=== PATIENT | female | born 1960 | race Caucasian/White ===

== ENCOUNTER 2021-10-08 10:16 | Inpatient (IN) | payer BC, MEDICAID ==
[~2021-10-08] VITALS: Ht 165.1 cm; Wt 51.7 kg
--- NOTE | 2021-10-08 10:50 | NUR ---
SALINE LOCK ESTABLISHED AND BLOOD DRAWN
--- NOTE | 2021-10-08 10:51 | NUR ---
UNABLE TO PROVIDE URINE AT THIS TIME, WILL TRY AGAIN LATER
--- NOTE | 2021-10-08 11:00 | NUR ---
PT BIB [facility] @ 1030 [facility],SENT BY DR LUNA FOR POOR INTAKE,POSSIBLE G-TUBE PLACEMENT. PT A/OX1-2 WITH FORGETFULNESS. TOLERATING R/A WELL WITH NO SOB AT 100%. L HAND #20G S/L; PATENT AND INTACT. SAFETY MEASURES IN PLACE
[2021-10-08] MEDS ORDERED: POLY17PO4 PO (11:02)
[2021-10-08] MEDS ORDERED: ASCO500C17 PO (11:02)
[2021-10-08] MEDS ORDERED: SENN-18 PO (11:02)
[2021-10-08] MEDS ORDERED: QUET25TA PO (11:02)
[2021-10-08] MEDS ORDERED: MIRT-121 PO (11:02)
[2021-10-08] MEDS ORDERED: SUCR1ORA4 PO (11:02)
[2021-10-08] MEDS ORDERED: THIA100T74 PO (11:02)
[2021-10-08] MEDS ORDERED: LANS15CA13 PO (11:02)
[2021-10-08] MEDS ORDERED: HEPA100D33 SUBCUT (11:02)
[2021-10-08] MEDS ORDERED: MULT-134 PO (11:02)
[2021-10-08] MEDS ORDERED: AMIN887L PO (11:02)
--- NOTE | 2021-10-08 11:16 | NUR ---
COVID ANTIGEN SWAB COLLECTED AND SENT TO LAB
[2021-10-08 11:21] LABS: BASOPHILS % (AUTO) 0.4 % (0.0-2.0); EOSINOPHILS % (AUTO) 3.4 % (0.0-6.0); HEMATOCRIT 39 % (33-45); HEMOGLOBIN 12.4 g/dL (11.5-14.8); LYMPHOCYTES % (AUTO) 45.3 % (20.0-44.0); MEAN CORPUSCULAR HGB CONC 32 g/dl (31.0-36.0); MEAN CORPUSCULAR VOLUME 89 fL (82-100); MONOCYTES # (AUTO) 0.4 K/uL (0.1-1.30); MONOCYTES % (AUTO) 8.9 % (2.0-12.0); NEUTROPHILS # (AUTO) 1.8 K/uL (1.8-8.9); PLATELET COUNT (AUTO) 250 K/uL (150-450); RED BLOOD CELL COUNT(AUTO) 4.36 MIL/uL (4.0-5.2); WHITE BLOOD COUNT (AUTO) 4.4 K/uL (4.3-11.0)
[2021-10-08 11:44] LABS: ALBUMIN 2.9 g/dL (3.4-5.0); BILIRUBIN,DIRECT 0.2 mg/dL (0.0-0.2); BILIRUBIN,TOTAL 0.7 mg/dL (0.2-1.0); CALCIUM, SERUM 9.8 mg/dL (8.5-10.1); CREATININE 0.6 mg/dL (0.6-1.3); POTASSIUM 3.7 mmol/L (3.5-5.1)
--- NOTE | 2021-10-08 11:50 | NUR ---
ZAYRA FROM [facility] FAX [phone]
[2021-10-08 11:52] LABS: THYROID STIMULATING HORMONE 5.593 uIU/mL (0.358-3.74)
[2021-10-08] MEDS ORDERED: IV NS 0.9% 1,000 ML BAG IV ONE (12:30)
[2021-10-08] MEDS ORDERED: ONDANSETRON HCL/PF 4 MG/2 ML VIAL IVP PRN (13:30)
[2021-10-08] MEDS ORDERED: MAGNESIUM HYDROXIDE 30 ML UDC PO PRN (13:30)
[2021-10-08] MEDS ORDERED: MAG HYDROX/AL HYDROX/SIMETH 30 ML UDC PO PRN (13:30)
--- NOTE | 2021-10-08 13:54 | NUR ---
COVID ANTIGEN (+); [place] BYRNE AWARE
--- NOTE | 2021-10-08 14:02 | NUR ---
ZAYRA FROM [facility] PT BEING DECLINED AT [facility] AND [facility] DUE TO NO BEDS. PT OKAY TO STAY AT [facility]. CALL [phone] FOR AUTH.
--- NOTE | 2021-10-08 16:12 | NUR ---
BED 202
--- NOTE | 2021-10-08 16:20 | NUR ---
REPORT GIVEN TO SHAINA FOR [facility], TRANSFER PATIENT IN 20MINS, ROOM BEING PREPARED
[2021-10-08] MEDS ORDERED: Z GUARD REMEDY 4 OZ OINT TP PRN (16:30)
--- NOTE | 2021-10-08 17:33 | NUR ---
PT TRANSFERRED TO [facility]IA [facility] PROTOCOL
--- NOTE | 2021-10-08 17:40 | NUR ---
MS RN ADMITTING NOTES RECEIVED ADMISSION FROM ER. PATIENT MEDICALLY STABLE. VS WNL. WILL CONTINUE TO MONITOR PATIENT.
[2021-10-08] MEDS: PANTOPRAZOLE 40 MG TABLET.DR PO SCH (18:15)
[2021-10-08] MEDS: QUETIAPINE FUMARATE 25 MG TABLET PO SCH (18:16)
--- NOTE | 2021-10-08 19:12 | NUR ---
MS RN NOTES PATIENT RESTING IN BED. ENDORSED TO CRISIS WORKER NURSE FOR [facility]
--- NOTE | 2021-10-08 19:30 | NUR ---
RN opening notes Pt is laying in bed comfortably watching TV. Pt is alert and orientedX1 and forgetful. Respiration is normal in room air. No SOB. No S/S of distress noted. IV sites L wrist # 20 is clean,intact, flushes well and SL. Noted dryness on Pt's skin. Safety precautions is maintained. Bed at low position, brakes locked, side rails upX3, bed alarm is on, hob elevated and call light is within reach. Will continue to monitor.
[2021-10-08 20:00] VITALS: BP 100/48
[2021-10-08] MEDS: IV NS 0.9% 1,000 ML IV PRN (20:10)
[2021-10-08] MEDS: ACETAMINOPHEN 325 MG TABLET PO PRN (20:12)
[2021-10-08] MEDS: MIRTAZAPINE 15 MG TABLET PO SCH (21:45)
[2021-10-08] MEDS: SENNOSIDES 8.6 MG TABLET PO SCH (21:45)
--- NOTE | 2021-10-09 02:27 | NUR ---
RN notes Informed and notified Dr. Nair regarding UA specimen and Pt's VTE score >5. Pt is incontinent. MD ordered straight catherer (once) and lovenox 40 mg/SQ/daily. Order carried out.
[2021-10-09] MEDS: ENOXAPARIN SODIUM 40 MG/0.4 ML DISP.SYRIN SQ SCH ×2 (03:25→22:10)
--- NOTE | 2021-10-09 03:33 | NUR ---
RN notes Unable to collect UA specimen thru straight cath. Pt refused straight cath. Explained risks and benefits. Pt stated "Try again later." Will try again.
[2021-10-09 04:00] VITALS: BP 100/58
--- NOTE | 2021-10-09 05:00 | NUR ---
RN notes Tried to inserted straight catherer for second time to collect UA. Unable to collect. Pt keep refusing. Explained risks and benefits. Will endorse to am nurse.
--- NOTE | 2021-10-09 06:30 | NUR ---
RN closing notes Pt is resting in bed comfortbaly. Pt is alert and orientedX1 and forgetful. Respiration is normal in room air. No SOB. No S/S of distress noted. IV sites L wrist # 20 is clean,intact, flushes well and infusing well NS@ 75 ml/hr. Routine meds were given as ordered. Skin care provided. Kept Pt clean, dry and comfortable. Safety precautions is maintained. Bed at low position, brakes locked, side rails upX3, bed alarm is on, hob elevated and call light is within reach. Will endorse to am nurse for M[facility].
[2021-10-09 07:24] LABS: BASOPHILS % (AUTO) 0.3 % (0.0-2.0); EOSINOPHILS % (AUTO) 2.5 % (0.0-6.0); HEMATOCRIT 35 % (33-45); HEMOGLOBIN 11.2 g/dL (11.5-14.8); LYMPHOCYTES % (AUTO) 37.9 % (20.0-44.0); MEAN CORPUSCULAR HGB CONC 32 g/dl (31.0-36.0); MEAN CORPUSCULAR VOLUME 89 fL (82-100); MONOCYTES # (AUTO) 0.5 K/uL (0.1-1.30); MONOCYTES % (AUTO) 8.9 % (2.0-12.0); NEUTROPHILS # (AUTO) 2.7 K/uL (1.8-8.9); NEUTROPHILS % (AUTO) 50.4 % (43.0-81.0); PLATELET COUNT (AUTO) 258 K/uL (150-450); WHITE BLOOD COUNT (AUTO) 5.3 K/uL (4.3-11.0)
[2021-10-09 08:00] VITALS: BP 104/56
[2021-10-09 08:37] LABS: CALCIUM, SERUM 9.2 mg/dL (8.5-10.1); CREATININE 0.5 mg/dL (0.6-1.3); MAGNESIUM 1.9 mg/dL (1.8-2.4); PHOSPHORUS 3.7 mg/dL (2.5-4.9); POTASSIUM 3.5 mmol/L (3.5-5.1)
[2021-10-09] MEDS: PROSTAT (PYXIS) 30 ML UDC PO SCH (09:00)
[2021-10-09] MEDS: MULTIVIT W/MINERALS 1 TAB TABLET PO SCH (09:07)
[2021-10-09] MEDS: SUCRALFATE 1 G TABLET PO SCH (09:07)
[2021-10-09] MEDS: POLYETHYLENE GLYCOL 3350 17 GM POWD.PACK PO SCH (09:07)
[2021-10-09] MEDS: ASCORBIC ACID 500 MG TABLET PO SCH (09:07)
[2021-10-09] MEDS: QUETIAPINE FUMARATE 25 MG TABLET PO SCH ×2 (09:07→16:56)
[2021-10-09] MEDS: PANTOPRAZOLE 40 MG TABLET.DR PO SCH ×2 (09:07→16:56)
[2021-10-09] MEDS: THIAMINE HCL 100 MG TABLET PO SCH (09:14)
[2021-10-09] MEDS: IV NS 0.9% 1,000 ML IV PRN (11:42)
--- NOTE | 2021-10-09 18:47 | NUR ---
RN MS NOTES PT IN BED, AWAKE, ALERT AND VERBALLY RESPONSIVE, WATCHING TV, DENIES PAIN NOT IN DISTRESS, CALL LIGHT WITHIN REACH, IV FLUIDS INFUSING WELL, PM CARE PROVIDED, ALL NEEDS ATTENDED.
--- NOTE | 2021-10-09 19:25 | NUR ---
RN MS NOTES PT IN BED, AWAKE, ALERT AND VERBALLY RESPONSIVE, WATCHING TV, DENIES PAIN NOT IN DISTRESS, CALL LIGHT WITHIN REACH, IV FLUIDS INFUSING WELL. WILL CONTINUE TO MONITOR. TO MONITOR.
[2021-10-09 20:00] VITALS: BP 137/72
[2021-10-09] MEDS: SENNOSIDES 8.6 MG TABLET PO SCH (21:54)
[2021-10-09] MEDS: MIRTAZAPINE 15 MG TABLET PO SCH (21:54)
[2021-10-10] VITALS: BP 123/75
[2021-10-10] MEDS ORDERED: LORAZEPAM INJ 2 MG/ML VIAL IV PRN
[2021-10-10 04:00] VITALS: BP 127/68
--- NOTE | 2021-10-10 07:20 | NUR ---
MS DAVIS NOTES RECEIVED PATIENT ON BED, AWAKE, NO SIGNS OF ACUTE DISTRE S Addendum: 10/10/21 at 1407 by JAKE SOLER RN CONTINUATION... NO SIGN OF ACUTE DISTRESS NOTED, ON ROOM AIR TOLERATING WELL. NO SOB NOTED. WITH IV ACCESS ON LEFT WRIST #20G INTACT AND PATENT, NS @75ML/HR ONGOING. ISOLATION PRECAUTIONS MAINTAINED, SAFETY PRECAUTIONS IN PLACE. WILL CONTINUE TO MONITOR.
[2021-10-10] MEDS: MULTIVIT W/MINERALS 1 TAB TABLET PO SCH (08:05)
[2021-10-10] MEDS: THIAMINE HCL 100 MG TABLET PO SCH (08:05)
[2021-10-10] MEDS: QUETIAPINE FUMARATE 25 MG TABLET PO SCH ×2 (08:05→17:11)
[2021-10-10] MEDS: PROSTAT (PYXIS) 30 ML UDC PO SCH (08:05)
[2021-10-10] MEDS: SUCRALFATE 1 G TABLET PO SCH (08:05)
[2021-10-10] MEDS: POLYETHYLENE GLYCOL 3350 17 GM POWD.PACK PO SCH (08:05)
[2021-10-10] MEDS: ASCORBIC ACID 500 MG TABLET PO SCH (08:05)
[2021-10-10] MEDS: PANTOPRAZOLE 40 MG TABLET.DR PO SCH ×2 (08:05→17:11)
[2021-10-10] MEDS: IV NS 0.9% 1,000 ML IV PRN (15:51)
--- NOTE | 2021-10-10 18:52 | NUR ---
MS RN CLOSING NOTES PATIENT IN BED, AWAKE, A/O X2, VERBALLY RESPONSIVE, NO SIGNS OF ACUTE DISTRESS NOTED. REMAINS ON ROOM AIR, TOLERATED WELL, NO SOB NOTED, BREATHING EVEN AND UNLABORED. IV ACCESS ON LEFT WRIST INTACT AND PATENT, NS @75ML/HR RUNNING. ISOLATION PRECAUTIONS OBSERVED. SAFETY PREACAUTIONS IN PLACE, BED LOCKED AND IN LOWEST POSITION, SR UP, CALL LIGHT PLACED WITHIN EASY REACH. WILL ENDORSE TO NEXT SHIFT.
[2021-10-10 20:00] VITALS: BP 112/66
[2021-10-10] MEDS: MIRTAZAPINE 15 MG TABLET PO SCH (21:52)
[2021-10-10] MEDS: SENNOSIDES 8.6 MG TABLET PO SCH (21:53)
[2021-10-10] MEDS: ACETAMINOPHEN 325 MG TABLET PO PRN (21:53)
[2021-10-10] MEDS: ENOXAPARIN SODIUM 40 MG/0.4 ML DISP.SYRIN SQ SCH (22:00)
--- NOTE | 2021-10-10 22:15 | NUR ---
Lovenox not given G-tube procedure in AM per Dr. Turner. Unable to get ahold of Dr. Shea at this time. Will keep NPO post ,midnight to be safe also.
--- NOTE | 2021-10-11 01:00 | NUR ---
attempted to obtain consent for G-tube placement called sister steve and left message.
[2021-10-11] MEDS: IV NS 0.9% 1,000 ML IV PRN (04:55)
--- NOTE | 2021-10-11 06:05 | NUR ---
Patient has been stable overnight. A&Ox2, gets more confused and anxious just prior to bedtime. Tolerating IVF well. NPO post MN for possible GT placement this AM. Message still hasnt been received by Dr. Shea yet. Consent was able to be obtained for procedure.
--- NOTE | 2021-10-11 07:45 | NUR ---
MS RN OPENING NOTE RECEIVED PT ASLEEP IN BED, EASY TO AROUSE. ALERT AND ORIENTED X 2, FORGETFUL WITH CONFUSION. BREATHING IS EVEN AND UNLABORED. NO S/SX OF DISTRESS NOTED. NO C/O PAIN. IV ACCESS L WRIST#20 PATENT AND INTACT WITH NS RUNNING @75MLS/HR. SAFETY MEASURES IN PLACE WITH BED LOCKED AND LOW POSITION;SIDE RAILS UP X2. WILL MONITOR PATIENT FOR CHANGES IN CONDITION.
[2021-10-11 08:00] VITALS: BP 138/70
[2021-10-11] MEDS: ASCORBIC ACID 500 MG TABLET PO SCH (08:46)
[2021-10-11] MEDS: MULTIVIT W/MINERALS 1 TAB TABLET PO SCH (08:46)
[2021-10-11] MEDS: THIAMINE HCL 100 MG TABLET PO SCH (08:46)
[2021-10-11] MEDS: SUCRALFATE 1 G TABLET PO SCH (08:46)
[2021-10-11] MEDS: PROSTAT (PYXIS) 30 ML UDC PO SCH (08:46)
[2021-10-11] MEDS: QUETIAPINE FUMARATE 25 MG TABLET PO SCH ×2 (08:46→16:47)
[2021-10-11] MEDS: POLYETHYLENE GLYCOL 3350 17 GM POWD.PACK PO SCH (08:46)
[2021-10-11] MEDS: PANTOPRAZOLE 40 MG TABLET.DR PO SCH ×2 (08:46→16:47)
--- NOTE | 2021-10-11 09:19 | NUR ---
WOUND CARE CONSULT: REVIEWED CHART, NURSING DOCUMENTATION AND PHOTOS WHICH INDICATE AREAS OF SKIN DISCOLORATION AND SCARRING TO SACRAL/BUTTOCKS AREA, PRESENT ON ADMISSION. RECOMMENDATIONS MADE FOR SKIN PROTECTION. DISCUSSED WITH NURSING STAFF. MD IN AGREEMENT WITH PLAN OF CARE. ROSANA ISOFLEX LOW AIRLOSS BED TO BE PLACED WHEN AVAILABLE.
[2021-10-11] MEDS ORDERED: METH4TAB3 PO (09:23)
[2021-10-11] MEDS ORDERED: ANESTHESIA TRAY IN PYXIS 1 EA TRAY MC ONE (11:29)
--- NOTE | 2021-10-11 14:30 | NUR ---
RN NOTE OR TEAM AND DR. PRABHAKAR AT BEDSIDE. PEG PLACEMENT COMPLETED. VITAL SIGNS STABLE. NO S/SX OF DISTRESS NOTED. NO C/O PAIN AT THIS TIME. WILL MONITOR PATIENT FOR ANY CHANGES IN CONDITION.
[2021-10-11 16:00] VITALS: BP 128/66
--- NOTE | 2021-10-11 17:00 | NUR ---
END TRIMMER NOTES PT WAS PICKED UP AT THIS TIME WITH STABLE VITAL SIGNS. NO S/SX OF DISTRESS. BREATHING IS EVEN AND UNLABORED. IV ACCESS REMOVED. ALL BELONGINGS ACCOUNTED FOR AND RETURNED. ID BAND REMOVED. REPORT GIVEN TO JOSE.
== END 2021-10-11 17:00 | DRG 421 ==
LOC: ER 11:14 → MEDSG2 16:20
PROVIDERS: ADMIT Internal Medicine; ATTEND Internal Medicine
PROC: 0DH63UZ Insertion of Feeding Device into Stomach, Percutaneous Approach (ICD-10-PCS; principal; 2021-10-11)
DX: R62.7 Adult failure to thrive (principal); U07.1 COVID-19; F03.90 Unspecified dementia, unspecified severity, without behavioral disturbance, psychotic disturbance, mood disturbance, and anxiety; F29 Unspecified psychosis not due to a substance or known physiological condition; R13.10 Dysphagia, unspecified; K21.9 Gastro-esophageal reflux disease without esophagitis; Z79.899 Other long term (current) drug therapy; Z68.1 Body mass index [BMI] 19.9 or less, adult; Z88.1 Allergy status to other antibiotic agents; Z79.01 Long term (current) use of anticoagulants; K29.70 Gastritis, unspecified, without bleeding
CPT/HCPCS: 36415; 43246; 71045-TC; 80048-TC; 80076-TC; 83735-TC; 84100-TC; 84443-TC; 85025-TC; 87081-TC; C9803; G0378; J1650; J2060; J7030

== ENCOUNTER 2022-09-02 22:35 | Emergency (ER) | payer BC ==
[~2022-09-02] VITALS: Ht 162.6 cm; Wt 50.3 kg
[~2022-09-02 22:35] MED LIST: AMIN887L PO; ASCO500C17 PO; HEPA100D33 SUBCUT; LANS15CA13 PO; METH4TAB3 PO; MIRT-121 PO; MULT-134 PO; POLY17PO4 PO; QUET25TA PO; SENN-18 PO; SUCR1ORA4 PO; THIA100T74 PO
--- NOTE | 2022-09-02 22:55 | NUR ---
DEEPAK YE FROM [facility] FOR PEG DISLODGED TODAY AT 1300. PT DENIES PAIN. PT A/OX2/3. TOLERATING R/A WELL WITH NO RESP DISTRESS. RR EVEN AND NON-LABORED. SAFETY MEASURES IN PLACE.
[2022-09-02] MEDS ORDERED: DIATR MEGLU/DIATRIZOATE SODIUM 30 ML BOTTLE (GASTROGRAPHIN) ONE (23:06)
--- NOTE | 2022-09-02 23:21 | NUR ---
GTUBE SITE STOMA CLOSED; COVERED WITH DRESSING
--- NOTE | 2022-09-02 23:22 | NUR ---
covid swab done and sent to lab
[2022-09-02 23:43] LABS: BASOPHILS % (AUTO) 0.5 % (0.0-2.0); EOSINOPHILS % (AUTO) 4.7 % (0.0-6.0); HEMATOCRIT 35 % (33-45); HEMOGLOBIN 11.6 g/dL (11.5-14.8); LYMPHOCYTES # (AUTO) 2.4 K/uL (0.8-4.8); LYMPHOCYTES % (AUTO) 25.6 % (20.0-44.0); MEAN CORPUSCULAR HGB CONC 33 g/dl (31.0-36.0); MEAN CORPUSCULAR VOLUME 89 fL (82-100); MONOCYTES # (AUTO) 1.1 K/uL (0.1-1.30); MONOCYTES % (AUTO) 11.7 % (2.0-12.0); NEUTROPHILS # (AUTO) 5.4 K/uL (1.8-8.9); NEUTROPHILS % (AUTO) 57.5 % (43.0-81.0); PLATELET COUNT (AUTO) 339 K/uL (150-450); RED BLOOD CELL COUNT(AUTO) 3.92 MIL/uL (4.0-5.2); WHITE BLOOD COUNT (AUTO) 9.4 K/uL (4.3-11.0)
[2022-09-02 23:53] LABS: CREATININE 0.5 mg/dL (0.6-1.3); POTASSIUM 3.9 mmol/L (3.5-5.1)
--- NOTE | 2022-09-03 00:39 | NUR ---
S/Hernandez BONNER FROM [facility] , PROVIDED HER WITH [facility]
--- NOTE | 2022-09-03 02:28 | NUR ---
S/W IVY FROM [facility] [place], PT ACCEPTED TO [facility] BY DR WRIGHT ROOM 765-2 REPORT TO [phone] AUTH TO ARRANGE TRANSPORT #[id number]
--- NOTE | 2022-09-03 02:37 | NUR ---
REPORT GIVEN TO SUZETTE DAVIS AT [facility] FOR [facility]
--- NOTE | 2022-09-03 02:46 | NUR ---
PT WILL BE TRANSPORTED IN 30 MINS [facility]IA [facility].
[2022-09-03 03:12] VITALS: BP 153/88
--- NOTE | 2022-09-03 04:06 | NUR ---
[facility] AT BEDSIDE FOR COMFORT ADVISOR
== END 2022-09-03 04:49 | disposition short-term general hospital (02) ==
LOC: ER 22:43
DX: Z43.1 Encounter for attention to gastrostomy (principal); F03.90 Unspecified dementia, unspecified severity, without behavioral disturbance, psychotic disturbance, mood disturbance, and anxiety; F20.9 Schizophrenia, unspecified; Z88.1 Allergy status to other antibiotic agents; Z88.0 Allergy status to penicillin; R91.8 Other nonspecific abnormal finding of lung field; Z20.822 Contact with and (suspected) exposure to COVID-19; Z79.01 Long term (current) use of anticoagulants; Z79.899 Other long term (current) drug therapy
CPT/HCPCS: 99285; 71045; 87426; 93005; 85025; 80048; 36415; 85730; Q9963; C9803